=== PATIENT | female | born 1985 | race Caucasian/White ===

== ENCOUNTER → 2019-10-25 12:51 | Outpatient (BNVA) | payer BC, SELFPAY | PROVIDERS: Family Provider Family Medicine; PCP Nurse Practitioner Family; Visit Provider Anesthesiology | DX: G89.29 Other chronic pain (principal); M54.16 Radiculopathy, lumbar region; M46.1 Sacroiliitis, not elsewhere classified; M53.3 Sacrococcygeal disorders, not elsewhere classified; M79.651 Pain in right thigh; Z79.891 Long term (current) use of opiate analgesic | CPT/HCPCS: 99214 ==

== ENCOUNTER → 2019-12-27 14:30 | Outpatient (BNVA) | payer BC, SELFPAY | PROVIDERS: Family Provider Family Medicine; PCP Nurse Practitioner Family; Visit Provider Nurse Practitioner | DX: G89.29 Other chronic pain (principal); M54.16 Radiculopathy, lumbar region; M53.3 Sacrococcygeal disorders, not elsewhere classified; M46.1 Sacroiliitis, not elsewhere classified; M79.651 Pain in right thigh; Z79.891 Long term (current) use of opiate analgesic | CPT/HCPCS: 99214 ==

== ENCOUNTER → 2020-04-11 09:23 | Outpatient (BNVA) | payer BC, SELFPAY | PROVIDERS: Family Provider Family Medicine; PCP Nurse Practitioner Family; Visit Provider Anesthesiology | DX: G89.29 Other chronic pain (principal); M54.16 Radiculopathy, lumbar region; M53.3 Sacrococcygeal disorders, not elsewhere classified; M46.1 Sacroiliitis, not elsewhere classified; Z79.891 Long term (current) use of opiate analgesic | CPT/HCPCS: 99213; 99214 ==

== ENCOUNTER → 2020-06-15 09:27 | Outpatient (BNVA) | payer BC, SELFPAY | PROVIDERS: Family Provider Family Medicine; PCP Nurse Practitioner Family; Visit Provider Anesthesiology | DX: G89.29 Other chronic pain (principal); M54.16 Radiculopathy, lumbar region; M53.3 Sacrococcygeal disorders, not elsewhere classified; M25.551 Pain in right hip; M46.1 Sacroiliitis, not elsewhere classified; Z79.891 Long term (current) use of opiate analgesic | CPT/HCPCS: 99214 ==

== ENCOUNTER → 2020-08-21 08:52 | Outpatient (BNVA) | payer BC, SELFPAY | PROVIDERS: Family Provider Family Medicine; PCP Nurse Practitioner Family; Visit Provider Anesthesiology | DX: G89.29 Other chronic pain (principal); M25.551 Pain in right hip; M54.16 Radiculopathy, lumbar region; M53.3 Sacrococcygeal disorders, not elsewhere classified; M46.1 Sacroiliitis, not elsewhere classified; Z79.891 Long term (current) use of opiate analgesic | CPT/HCPCS: 99213; 99214 ==

== ENCOUNTER → 2020-10-23 10:40 | Outpatient (BNVA) | payer BC, SELFPAY | PROVIDERS: Family Provider Family Medicine; PCP Nurse Practitioner Family; Visit Provider Nurse Practitioner | DX: G89.29 Other chronic pain (principal); M25.551 Pain in right hip; M54.41 Lumbago with sciatica, right side; M54.16 Radiculopathy, lumbar region; M46.1 Sacroiliitis, not elsewhere classified; M53.3 Sacrococcygeal disorders, not elsewhere classified; Z79.891 Long term (current) use of opiate analgesic | CPT/HCPCS: 99213; 99214 ==

== ENCOUNTER → 2020-12-18 08:55 | Outpatient (BNVA) | payer BC, SELFPAY | PROVIDERS: Family Provider Family Medicine; PCP Nurse Practitioner Family; Visit Provider Anesthesiology | DX: G89.29 Other chronic pain (principal); M53.3 Sacrococcygeal disorders, not elsewhere classified; M54.16 Radiculopathy, lumbar region; M46.1 Sacroiliitis, not elsewhere classified; M25.561 Pain in right knee; M25.551 Pain in right hip; Z79.891 Long term (current) use of opiate analgesic | CPT/HCPCS: 99214 ==

== ENCOUNTER → 2021-02-22 14:06 | Outpatient (BNVA) | payer SELFPAY | PROVIDERS: Family Provider Family Medicine; PCP Nurse Practitioner Family; Visit Provider Anesthesiology | DX: G89.29 Other chronic pain (principal); M54.16 Radiculopathy, lumbar region; Z79.891 Long term (current) use of opiate analgesic | CPT/HCPCS: 99213 ==

== ENCOUNTER 2021-10-29 14:36 | Outpatient (CLI) | payer BC, SELFPAY ==
--- NOTE | 2021-10-29 14:56 | XR_ITS ---
WS: [id number] RIGHT HAND: 2 VIEW(S) TECHNIQUE: PA and lateral. HISTORY: R79.82 - Elevated C-reactive protein (CRP) COMPARISON: None available. No acute fracture or dislocation. No soft tissue or bone abnormality. XR/XR hand RT 2V [id number] IMPRESSION: Normal RIGHT hand.
--- NOTE | 2021-10-29 14:56 | XR_ITS ---
WS: [id number] LEFT HAND: 2 VIEW(S) TECHNIQUE: PA and lateral. HISTORY: R79.82 - Elevated C-reactive protein (CRP) COMPARISON: None available. No acute fracture or dislocation. No soft tissue or bone abnormality. XR/XR hand LT 2V [id number] IMPRESSION: Normal LEFT hand.
--- NOTE | 2021-10-29 14:56 | XR_ITS ---
WS: [id number] SACROILIAC JOINTS TECHNIQUE: AP and oblique imaging is submitted. HISTORY: L40.9 - Psoriasis, unspecified COMPARISON: None available. Very mild bilateral increased density along the mid to lower SI joints. Very slight irregularity invo lving the sacral side of the RIGHT SI joint. No bone fusion. No large erosions. No soft tissue abnormality. XR/XR sacroiliac jts m 3V [id number] IMPRESSION: Mild early changes of sacroiliitis bilaterally but greatest on the RIGHT. These changes can be seen with early changes of psoriasis.
[2021-10-29 16:04] LABS: Erythrocyte Sedimentation Rate 6 mm/hr (0-15)
[2021-10-29 16:27] LABS: C Reactive Protein 0.3 mg/L (0.0-4.9); Creatine Phosphokinase 93 U/L (26-192); Ferritin 37 ng/mL (15-150); Iron 60 ug/dL (37-145)
[2021-10-29 16:33] LABS: Hepatitis B Core AB, Total Non-Reactive (Nonreactive); Hepatitis B Surface Antigen Non-Reactive (Nonreactive); Hepatitis C Virus Antibody Non-Reactive (Nonreactive)
[2021-10-30 11:54] LABS: COMPLEMENT COMPONENT C3C 112 mg/dL (83-193); COMPLEMENT COMPONENT C4C 21 mg/dL (15-57)
[2021-10-30 13:04] LABS: COMPLEMENT, TOTAL (CH50) >60 U/mL (31-60)
[2021-10-30 14:07] LABS: Cyclic Citrullinated Peptide <16 UNITS
[2021-10-31 11:58] LABS: CENTROMERE B ANTIBODY <1.0 NEG AI (<1.0 NEG); JO-1 ANTIBODY <1.0 NEG AI (<1.0 NEG); RNP ANTIBODY <1.0 NEG AI (<1.0 NEG); SCL-70 ANTIBODY <1.0 NEG AI (<1.0 NEG); SJOGREN'S ANTIBODY (SS-A) <1.0 NEG AI (<1.0 NEG); SM ANTIBODY <1.0 NEG AI (<1.0 NEG); SS-B <1.0 NEG AI (<1.0 NEG)
[2021-10-31 14:32] LABS: THYROID PEROXIDASE ANTIBODIES <1 IU/mL (<9)
[2021-10-31 16:26] LABS: ANA SCREEN, IFA NEGATIVE (NEGATIVE)
[2021-11-05 12:28] LABS: DNA AB (DS) CRITHIDIA,IFA NEGATIVE (NEGATIVE)
== END 2021-10-29 14:37 | disposition home or self-care (01) ==
LOC: LAB 14:52 → RAD 14:54
PROVIDERS: PCP Nurse Practitioner Family; Visit Provider Internal Medicine
DX: R79.82 Elevated C-reactive protein (CRP) (principal); L40.9 Psoriasis, unspecified; Z11.59 Encounter for screening for other viral diseases; M46.1 Sacroiliitis, not elsewhere classified
CPT/HCPCS: 36415; 72202; 73120; 82533; 82550; 82728; 83516; 83540; 85651; 86140; 86160; 86162; 86200; 86235; 86255; 86376; 86704; 86803; 87340

== ENCOUNTER 2024-07-13 08:10 | Outpatient (CLI) | payer BC, SELFPAY ==
--- NOTE | 2024-07-13 08:14 | MM_ITS ---
WS: [id number] SCREENING DIGITAL BREAST TOMOSYNTHESIS MAMMOGRAM WITH CAD HISTORY: SCREENING COMPARISON: 06/16/2018 Bilateral CC and MLO with tomosynthesis and synthetic mammography submitted. Computer aided detection analyzed. Breast composition: The breasts are extremely dense, which lowers the sensitivity of mammography. Kaz ateral breast asymmetries are focal and new since the prior study. Asymmetry central to the RIGHT nip ple. There is additional asymmetry with architectural distortion in the central posterior LEFT breast . This is not definitely seen on the lateral projection. There are 2 additional smaller asymmetries n oted on the LEFT MLO which need additional evaluation also. MM/MM scr tomosynthesis [id number] IMPRESSION: BI-RADS: 0 - Incomplete: Need additional imaging evaluation FOLLOW UP: Need Additional Imaging RIGHT breast: Spot compression views (CC and MLO). True ML. Ultrasound to follo w if abnormality persists. LEFT breast: Spot compression views (CC and MLO). True ML. Ultrasound to follow if abnormality persists.
== END 2024-07-13 08:11 | disposition home or self-care (01) ==
LOC: RAD 08:10
PROVIDERS: PCP Nurse Practitioner Family; Visit Provider Nurse Practitioner Family
DX: Z12.31 Encounter for screening mammogram for malignant neoplasm of breast (principal)
CPT/HCPCS: 77063; 77067

== ENCOUNTER 2024-09-06 14:20 | Outpatient (CLI) | payer BC, SELFPAY ==
--- NOTE | 2024-09-06 14:27 | US_ITS ---
WS: [id number] DIAGNOSTIC BILATERAL DIGITAL BREAST TOMOSYNTHESIS MAMMOGRAPHY WITH CAD RIGHT breast ultrasound, limited HISTORY: R92.2 - Inconclusive mammogram COMPARISON: 07/13/2024, 06/16/2018 TECHNIQUE: Bilateral craniocaudad, mediolateral oblique, and mediolateral views are submitted with to mosynthesis and SM. Spot compression bilateral CC and MLO views. Computer aided detection utilized. Focal asymmetry retroareolar RIGHT breast just slightly towards 6:00 persists. Asymmetry becomes less apparent but ultrasound will be performed. The asymmetries in the LEFT breast resolves with spot com pression views. There are no persistent abnormalities in the LEFT breast. RIGHT breast ultrasound, limited. Very dense fibroglandular tissue in the retroareolar and subareolar region of the RIGHT breast. There is no mass or shadowing identified at 6:00. US/US breast RT limited* [id number] IMPRESSION: BI-RADS: 2- Benign FOLLOW UP: 1 Year Follow-up Breasts are extremely dense with asymmetries. No persistent mass or shadowing i dentified. Return to normal annual screening mammography.
--- NOTE | 2024-09-06 14:30 | MM_ITS ---
WS: [id number] DIAGNOSTIC BILATERAL DIGITAL BREAST TOMOSYNTHESIS MAMMOGRAPHY WITH CAD RIGHT breast ultrasound, limited HISTORY: R92.2 - Inconclusive mammogram COMPARISON: 07/13/2024, 06/16/2018 TECHNIQUE: Bilateral craniocaudad, mediolateral oblique, and mediolateral views are submitted with to mosynthesis and SM. Spot compression bilateral CC and MLO views. Computer aided detection utilized. Focal asymmetry retroareolar RIGHT breast just slightly towards 6:00 persists. Asymmetry becomes less apparent but ultrasound will be performed. The asymmetries in the LEFT breast resolves with spot com pression views. There are no persistent abnormalities in the LEFT breast. RIGHT breast ultrasound, limited. Very dense fibroglandular tissue in the retroareolar and subareolar region of the RIGHT breast. There is no mass or shadowing identified at 6:00. MM/MM diag BI tomosynthesis [id number] IMPRESSION: BI-RADS: 2- Benign FOLLOW UP: 1 Year Follow-up Breasts are extremely dense with asymmetries. No persistent mass or shadowing i dentified. Return to normal annual screening mammography.
== END 2024-09-06 14:21 | disposition home or self-care (01) ==
LOC: RAD 14:21
PROVIDERS: PCP Nurse Practitioner Family; Visit Provider Nurse Practitioner Women's Health
DX: R92.333 Mammographic heterogeneous density, bilateral breasts (principal); R92.2 Inconclusive mammogram
CPT/HCPCS: 76642; 77062; G0279

== ENCOUNTER 2024-10-20 14:17 | Observation (INO) | payer BC, SELFPAY ==
--- NOTE | 2024-10-19 08:32 | ANES.PREANE2 ---
Pre-Anesthetic Assessment Height/Weight: Height 5 ft 7 in Preop Diagnosis: abnormal uterine bleeding Operation Date: 10/20/24 12:00 Proposed Procedures p Total Vaginal Hysterectomy 82116, N93.9(Not Applicable) - Shravan Quezada MD Was Beta Lea taken within 24 hours: N/A Was Clonidine taken within 24 hours: N/A Social No alcohol and No tobacco Exam alert, oriented x 3, clear to auscultation bilaterally and regular rate & rhythm Airway Submandibular: within normal limits Cervical ROM: within normal limits Mallampati: Class I Dentition: full Anesthetic Plan ASA status: 1 Anesthesia: General Other: Patient presents to preop clinic today for scheduled hysterectomy tomorrow No prior issues with anesthesia Plan to be n.p.o. at midnight Denies any pulmonary cardiac issues Does not take any medications at baseline METs greater than 4 Plan for general anesthesia Medications/Allergies Allergies Allergy/AdvReac Type Severity Reaction Status Date / Time clindamycin Allergy Unknown ALGY-Rash Verified 10/13/24 15:24 amoxicillin AdvReac RASH/DIARRH Verified 10/13/24 15:24 EA PFS Anesthesia Medical History Encounter for long-term opiate analgesic use Chronic narcotic use Opioid contract exists Sacroiliitis Chronic left lumbar radiculopathy Chronic SI joint pain Chronic lumbosacral pain Surgical History H/O tubal ligation Family History Mother Dementia Hyperlipidemia Hypertension Grandfather Dementia Diabetes Stroke Heart attack Father Hyperlipidemia Hypertension Brother Hyperlipidemia Hypertension Sister Hyperlipidemia Hypertension Grandmother Heart attack Family/Other Rheumatoid arthritis Other CAD (coronary artery disease) Denies family history of Lupus Chronic kidney disease (CKD) Bleeding disorder Lung disease Cancer Social History Smoking and tobacco/nicotine status: never used tobacco/nicotine Quit status (tobacco/nicotine): has quit using Year quit tobacco: 10 years ago Second hand smoke exposure: No Alcohol intake: current Alcohol intake frequency: holidays/special occasions only Substance/Drug Use: never Female Reproductive History Date of last menstrual period: 10/19/24 Data Anesthesia Cardiac Studies: No Data to Display
[2024-10-20] VITALS (14 sets, daily range): BP systolic 90–119; BP diastolic 53–71; PULSE 48–83; RESP 14–18; TEMP 36.4–36.9; O2SAT 99–100; BMI 18.8
--- NOTE | 2024-10-20 11:06 | P.ANESASSM_ITS ---
Pre-Anesthetic Assessment Height/Weight: Height 5 ft 7 in Weight 120 lb Temp Pulse Resp BP Pulse Ox O2 Del Method 98.5 F 72 14 119/68 99 Room Air 10/20/24 10:43 10/20/24 10:43 10/20/24 10:43 10/20/24 10:43 10/20/24 10:43 10/20/24 11:04 Preop Diagnosis: abnormal uterine bleeding Operation Date: 10/20/24 12:00 Proposed Procedures p Total Vaginal Hysterectomy 90808, N93.9(Not Applicable) - Shravan Quezada MD Was Beta Lea taken within 24 hours: N/A Was Clonidine taken within 24 hours: N/A Last intake: Intake Last Liquid Date 10/19/24 Last Liquid Time 20:30 Last Solid Date 10/19/24 Last Solid Time 19:00 Social No alcohol and No tobacco Exam alert, oriented x 3, clear to auscultation bilaterally and regular rate & rhythm Airway Submandibular: within normal limits Cervical ROM: within normal limits Mallampati: Class I Dentition: full Anesthetic Plan ASA status: 1 Anesthesia: General Other: No prior issues with anesthesia NPO since yesterday Denies any pulmonary or cardiac issues Does not take any home medications METs greater than 4 Plan for GETA Medications/Allergies Allergies Allergy/AdvReac Type Severity Reaction Status Date / Time clindamycin Allergy Unknown ALGY-Rash Verified 10/13/24 15:24 amoxicillin AdvReac RASH/DIARRH Verified 10/13/24 15:24 EA [facility] Anesthesia Medical History Encounter for long-term opiate analgesic use Chronic narcotic use Opioid contract exists Sacroiliitis Chronic left lumbar radiculopathy Chronic SI joint pain Chronic lumbosacral pain Surgical History H/O tubal ligation Family History Mother Dementia Hyperlipidemia Hypertension Grandfather Dementia Diabetes Stroke Heart attack Father Hyperlipidemia Hypertension Brother Hyperlipidemia Hypertension Sister Hyperlipidemia Hypertension Grandmother Heart attack Family/Other Rheumatoid arthritis Other CAD (coronary artery disease) Denies family history of Lupus Chronic kidney disease (CKD) Bleeding disorder Lung disease Cancer Social History Smoking and tobacco/nicotine status: never used tobacco/nicotine Quit status (tobacco/nicotine): has quit using Year quit tobacco: 10 years ago Second hand smoke exposure: No Alcohol intake: current Alcohol intake frequency: holidays/special occasions only Substance/Drug Use: never Female Reproductive History Date of last menstrual period: 10/19/24 Data Anesthesia Cardiac Studies: No Data to Display
[2024-10-20] MEDS: sodium chloride 0.9% 1,000 ML 30 ML IV (11:45)
[2024-10-20 11:47] LABS: OR HCG Qualitative Urine Negative (Negative)
[2024-10-20 12:06] LABS: Basophils % 0.7 %; Eosinophils # 0.2 10^3/uL (0.0-0.8); Eosinophils % 2.6 %; Hematocrit 45.3 % (36-47); Lymphocytes # 1.7 10^3/uL (0.8-4.8); Lymphocytes % 28.2 %; Mean Corpuscular HGB Conc 33.8 g/dL (30-55); Mean Corpuscular Hemoglobin 31.8 pg (27-33); Mean Corpuscular Volume 94.2 fl (85-98); Mean Platelet Volume 9.4 fL (7.4-10.4); Monocytes # 0.3 10^3/uL (0.2-0.9); Monocytes % 5.5 %; Neutrophils # 3.85 10^3/uL (1.8-7.7); Neutrophils % 62.7 %; Nucleated Red Blood Cells % 0 %; Platelet Count 459 10^3/cmm (157-399); Red Blood Count 4.81 10^6/uL (3.85-5.65); Red Cell Distribution Width 13.2 % (12.1-15.1); White Blood Count 6.14 10^3/uL (3.29-11.43)
[2024-10-20] MEDS: VANCOMYCIN ADD-Vantage 1,000 MG in 0.9% NaCl ADD-Vantage 250 ML 250 MG IV (12:10)
[2024-10-20 12:25] LABS: Bilirubin Urine Negative (Negative); Blood Urine Negative (Negative); Glucose Urine UA Negative (Normal); Ketones Urine Negative (Negative); Leukocyte Esterase Urine Negative (Negative); Nitrate Urine Negative (Negative); Protein Urine Negative (Negative); Specific Gravity, Urine 1.019 (1.005-1.030); Urine Appearance Clear (CLEAR); Urobilinogen Urine 0.2 mg/dL (Negative)
[2024-10-20 12:30] LABS: Add Urine Microscopic? YES; Bacteria Urine None Seen /hpf; Hyaline Casts Urine 0-4 /lpf; RBC Urine 0-2 /hpf (0-2); Squamous Epithelial Cell Urine 0-5 /hpf (0-5); WBC Urine 0-5 /hpf (0-5)
--- NOTE | 2024-10-20 12:30 | W.PM.OPSUD ---
Surgery/Procedure H&P Update DATE OF PROCEDURE: October 20, 2024 DATE H&P PERFORMED: 10/13/24 H&P UPDATE INFORMATION: I have reviewed H&P completed within last 30 days, I have examined patient prior to procedure and No changes to prior documentation PREOP DIAGNOSIS: Abnormal uterine bleeding, adenomyosis PLANNED PROCEDURE: Operation Date: 10/20/24 12:00 Proposed Procedures p Total Vaginal Hysterectomy 13540, N93.9(Not Applicable) - Shravan Quezada MD
[2024-10-20] MEDS: scopolamine 1 mg PATCH 1 PATCH TRANSDERMA (12:31)
[2024-10-20] MEDS: ondansetron 2 mg/ML SDV 2 mL 4 MG IVP (12:32)
[2024-10-20] MEDS: midazolam 1 mg/mL INJ 2 mL 2 MG IVP (12:38)
[2024-10-20 12:40] LABS: Alanine Aminotransferase 13 U/L (0-33); Albumin Level 4.7 g/dL (3.5-5.2); Alkaline Phosphatase 66 U/L (35-105); Anion Gap 17.9 (5-19); Aspartate Amino Transferase 17 U/L (0-32); Blood Urea Nitrogen 10 mg/dL (6-20); Calcium 9.4 mg/dL (8.5-10.5); Carbon Dioxide 21 mmol/L (22-29); Chloride 101 mmol/L (98-107); Creatinine Clr Calc Pharmacy 114.4058; Globulin 2.8 g/dL (1.3-4.6); Glomerular Filtration Rate 110.2 mL/min (90-130); Glucose 77 mg/dL (65-115); Osmolality Calculated 280 mOsm/kg (285-295); Potassium 3.9 mmol/L (3.5-5.1); Sodium 136 mmol/L (136-145); Total Bilirubin 0.8 mg/dL (0.15-1.2); Total Protein 7.5 g/dL (6.6-8.7)
[2024-10-20 12:48] LABS: Urine Color Orange (Yellow)
[2024-10-20] MEDS: levofloxacin-dextrose 5 % 500 MG/100 ML PREMIX 100 MG IV (13:28)
[2024-10-20] MEDS: lidocaine-epi 2% PF 1:200,000 20 mL SDV INJECTION (13:31)
--- NOTE | 2024-10-20 14:20 | P.OP_ITS ---
Operative Report Date of procedure: October 20, 2024 Pre-op diagnosis: Abnormal uterine bleeding Adenomyosis Post-op findings: Enlarged uterus Procedure done: Total vaginal hysterectomy Specimens removed/disposition: Uterus Surgeon: Shravan Quezada MD Estimated blood loss (mL): 100 IV fluids (mL): 1,100 Urine output (mL): 150 Complications: Bleeding Procedure: After informed consent and risks, benefits, indications and alternatives reviewed with the patient was taken to the operating room. The patient was placed in dorsal lithotomy position prepped, and draped in the usual sterile fashion. The pre-procedure timeout verifying the correct patient, procedure, site and side, could not requirements was performed and acknowledge by the OR team. A Seo catheter was placed. A Bookwalter vaginal retractor was placed into the vagina in usual manner visualize the cervix. Cervix was grasped with a single tooth tenaculum and circumferentially infiltrated with 2% lidocaine with epinephrine. Then cervix was circumferentially incised with bovie and the bladder was dissected off the pubovesical cervical fascia anteriorly with a sponge stick and Metzenbaum scissors. The anterior peritoneal reflection was identified and the anterior cul-de-sac was entered sharply with Metzenbaum scissors. The same procedure was performed posteriorly and a posterior colpotomy was made through the posterior cul-de-sac space without difficulty and the posterior blade of the Bookwalter vaginal retractor was advanced posteriorly into the cul-de-sac. At this time, the left and right uterosacral ligaments were isolated and ligated with 0 Vicryl. The LigaSure device was placed over the uterosacral ligaments on either side and was then used in a serial fashion up through the cardinal ligaments bilaterally cross-clamped, cut, and sealed with the LigaSure device. Finally, the uterine arteries were cross-clamped, cut, sealed and ligated with the LigaSure device. Hemostasis was assured. The broad ligaments were then serially clamped, sealed and cut with the LigaSure device on both sides. Excellent hemostasis was visua lized. Both cornua were clamped, sealed and cut with the LigaSure device. Then the pedicles were then suture ligated with excellent hemostasis. The uterus was excised and submitted for pathologic evaluation. No other abnormalities were noted in the pelvic cavity. The peritoneum was then closed in a pursestring fashion with 0 Vicryl suture. The vaginal cuff angles were closed with [id number] #0 Vicryl suture on both sides and transfixed with the ipsilateral cardinal and uterosacral ligaments. The remainder of the vaginal cuff was closed with #0 Vicryl in a running locked fashion. Bludigo was given IV At this time, instruments were removed from the vagina at hemostasis assured. Then the Seo catheter was then placed yielding clear blue urine. The patient was taken out of dorsal lithotomy position and awakened from the general anesthesia. The patient tolerated the procedure well and was taken to the PACU recovery room in a stable condition. Sponge, lap, needle and instruments counts were correct x3.
--- NOTE | 2024-10-20 14:25 | W.PM.BPON ---
Date of Procedure: 10/20/24 Surgeon: Shravan Quezada MD Radiocommunications Technician(s): Procedure(s) performed: Total vaginal hysterectomy Findings of the procedure(s): Enlarged uterus Estimated blood loss: 100 mL Specimen(s) removed: Uterus Post-operative diagnosis: Status post total vaginal
[2024-10-20] MEDS: HYDROmorphone 1 mg/mL INJ 1 mL 0.5 MG IVP (14:30)
--- NOTE | 2024-10-20 14:59 | ANE.PACU2 ---
Inpatient post-anesthesia follow up: Airway intact: Yes Vital signs: Temperature 98.4 F Pulse Rate 68 Respiratory Rate 14 Blood Pressure 122/75 Pulse Oximetry 98 Oxygen Delivery Me thod Room Air Oxygen Flow Rate Fraction of Inspir ed Oxygen Hydration adequate: Yes Nausea and vomiting: No Pain level: 1 Mental status: Baseline
[2024-10-20] MEDS: ketorolac 30 mg/mL INJ IVP ×2 (16:05→22:19)
[2024-10-20] MEDS: docusate sodium 100 mg Capsule PO (19:18)
[2024-10-20] MEDS: HYDROcodone-acetaminophen 5-325 mg Tablet PO (19:18)
[2024-10-21] MEDS: ketorolac 30 mg/mL INJ IVP ×2 (05:09→09:53)
[2024-10-21 05:11] VITALS: BP 104/67; PULSE 53; RESP 16; O2SAT 100
[2024-10-21 05:30] LABS: Hematocrit 37.7 % (36-47); Mean Corpuscular HGB Conc 32.9 g/dL (30-55); Mean Corpuscular Hemoglobin 32.4 pg (27-33); Mean Corpuscular Volume 98.4 fl (85-98); Mean Platelet Volume 8.6 fL (7.4-10.4); Platelet Count 375 10^3/cmm (157-399); Red Blood Count 3.83 10^6/uL (3.85-5.65); Red Cell Distribution Width 13.4 % (12.1-15.1); White Blood Count 14.05 10^3/uL (3.29-11.43)
[2024-10-21 08:49] VITALS: BP 128/77; PULSE 69; RESP 14; O2SAT 99
[2024-10-21] MEDS: docusate sodium 100 mg Capsule PO (08:51)
--- NOTE | 2024-10-21 12:37 | P.DS_ITS ---
Discharge Providers PERITONEAL DIALYSIS REGISTERED NURSE Date of Admission: 10/20/24 14:17 Date of Discharge: 10/21/24 Attending Provider at Admission: Shravan Quezada MD Attending Provider at Discharge: Shravan Quezada MD Primary Care Provider: MARY Shabazz Reason for Visit Reason for Visit: N93.9 Hospital Course Hospital Course Mrs. Cartagena 39-year-old female with a history of abnormal uterine bleeding unresponsive to medical management admitted for planned total vaginal hysterectomy. The procedure was performed without complication. She is afebrile and hemodynamically stable postoperative day 1. Tolerating diet well. Ambulating without difficulty. She was counseled regarding pelvic rest for 6 weeks (no sex, no tampons, no vaginal douches). Return to the emergency room if any fever, increased bleeding or pain. Physical Exam Narrative: GA: Alert and oriented ?3. HEENT: WNL. Heart: Regular rate and rhythm. Lungs: Clear to auscultation bilaterally. Abdomen: Bowel sounds present, nontender. MINGLE OPERATOR: spotting bleeding. Extremities: No edema, no cyanosis, no calves pain. Urinary Catheter Management: Seo: Cath Placed During This Visit: yes, but has since been removed by the nurse Reason for Continuing Indwelling Catheter: Decision to DC Catheter Urinary Catheter Date of Insertion: 10/20/24 Urinary Catheter Time of Insertion: 13:10 Date Urinary Catheter Removed: 10/21/24 Time Urinary Catheter Discontinued: 05:15 History History History 3 Term 3 0 Miscarriages/Ectopic 0 Living Children 3 Discharge Data Studies Completed and Pending Pending at discharge Category Date Time Status Pathology: Surgical [PTH] Routine Pth 10/20/24 13:54 Received Laboratory Results WBC 14.05 10^3/uL (3.29-11.43) H 10/21/24 05:15 RBC 3.83 10^6/uL (3.85-5.65) L 10/21/24 05:15 Hgb 12.40 g/dL (11.27-16.99) 10/21/24 05:15 Hct 37.7 % (36-47) 10/21/24 05:15 MCV 98.4 fl (85-98) H 10/21/24 05:15 MCH 32.4 pg (27-33) 10/21/24 05:15 MCHC 32.9 g/dL (30-55) 10/21/24 05:15 RDW 13.4 % (12.1-15.1) 10/21/24 05:15 Plt Count 375 10^3/cmm (157-399) 10/21/24 05:15 MPV 8.6 fL (7.4-10.4) 10/21/24 05:15 Neut % (Auto) 62.7 % 10/20/24 11:15 Lymph % (Auto) 28.2 % 10/20/24 11:15 [place] % (Auto) 5.5 % 10/20/24 11:15 Eos % (Auto) 2.6 % 10/20/24 11:15 Baso % (Auto) 0.7 % 10/20/24 11:15 Neut # (Auto) 3.85 10^3/uL (1.8-7.7) 10/20/24 11:15 Lymph # (Auto) 1.7 10^3/uL (0.8-4.8) 10/20/24 11:15 [place] # (Auto) 0.3 10^3/uL (0.2-0.9) 10/20/24 11:15 Eos # (Auto) 0.2 10^3/uL (0.0-0.8) 10/20/24 11:15 Baso # (Auto) 0.0 10^3/uL (0.0-0.1) 10/20/24 11:15 Nucleated RBC % (auto) 0 % 10/20/24 11:15 Nucleated RBCs # 0.0 /100WBC 10/20/24 11:15 Sodium 136 mmol/L (136-145) 10/20/24 11:15 Sodium Cancelled 10/20/24 11:15 Potassium 3.9 mmol/L (3.5-5.1) 10/20/24 11:15 Potassium Cancelled 10/20/24 11:15 Chloride 101 mmol/L (98-107) 10/20/24 11:15 Chloride Cancelled 10/20/24 11:15 Carbon Dioxide 21 mmol/L (22-29) L 10/20/24 11:15 Carbon Dioxide Cancelled 10/20/24 11:15 Anion Gap 17.9 (5-19) 10/20/24 11:15 Anion Gap Cancelled 10/20/24 11:15 BUN 10 mg/dL (6-20) 10/20/24 11:15 BUN Cancelled 10/20/24 11:15 Creatinine 0.6 mg/dL (0.5-0.9) 10/20/24 11:15 Creatinine Cancelled 10/20/24 11:15 GFR Calculation 110.2 mL/min (90-130) 10/20/24 11:15 GFR Calculation Cancelled 10/20/24 11:15 Glucose 77 mg/dL (65-115) 10/20/24 11:15 Glucose Cancelled 10/20/24 11:15 Calculated Osmolality 280 mOsm/kg (285-295) L 10/20/24 11:15 Calculated Osmolality Cancelled 10/20/24 11:15 Calcium 9.4 mg/dL (8.5-10.5) 10/20/24 11:15 Calcium Cancelled 10/20/24 11:15 Total Bilirubin 0.8 mg/dL (0.15-1.2) 10/20/24 11:15 AST 17 U/L (0-32) 10/20/24 11:15 ALT 13 U/L (0-33) 10/20/24 11:15 Alkaline Phosphatase 66 U/L (35-105) 10/20/24 11:15 Total Protein 7.5 g/dL (6.6-8.7) 10/20/24 11:15 Albumin 4.7 g/dL (3.5-5.2) 10/20/24 11:15 Globulin 2.8 g/dL (1.3-4.6) 10/20/24 11:15 Urine Color [place] (Yellow) A 10/20/24 10:35 Urine Appearance Clear (CLEAR) 10/20/24 10:35 Urine pH 6.0 (5-7) 10/20/24 10:35 Ur Specific [place] 1.019 (1.005-1.030) 10/20/24 10:35 Urine Protein Negative (Negative) 10/20/24 10:35 Urine Glucose (UA) Negative (Normal) 10/20/24 10:35 Urine Ketones Negative (Negative) 10/20/24 10:35 Urine Blood Negative (Negative) 10/20/24 10:35 Urine Nitrate Negative (Negative) 10/20/24 10:35 Urine Bilirubin Negative (Negative) 10/20/24 10:35 Urine Urobilinogen 0.2 mg/dL (Negative) 10/20/24 10:35 Ur Leukocyte Esterase Negative (Negative) 10/20/24 10:35 Urine RBC 0-2 /hpf (0-2) 10/20/24 10:35 Urine WBC 0-5 /hpf (0-5) 10/20/24 10:35 Ur Squamous Epith Cells 0-5 /hpf (0-5) 10/20/24 10:35 Amorphous Sediment Not Reportable 10/20/24 10:35 Urine Bacteria None seen /hpf (NONE) 10/20/24 10:35 Hyaline Casts 0-4 /lpf H 10/20/24 10:35 Urine HCG, Qual Negative (Negative) 10/20/24 10:35 Blood Type O Positive 10/20/24 11:15 Rho(D) Type Rh positive 10/20/24 11:15 Antibody Screen Negative 10/20/24 11:15 Vitals Last Vital Signs Temp 98.1 F 10/20/24 23:00 Pulse 69 10/21/24 08:49 Resp 14 10/21/24 08:49 BP 128/77 10/21/24 08:49 Pulse Ox 99 10/21/24 08:49 O2 Del Method Room Air 10/21/24 08:49 Results Labs OB ([facility]): Blood Type O Positive 10/20/24 Antibody Screen Negative 10/20/24 Hct 37.7 % (36-47) 10/21/24 Hgb 12.40 g/dL (11.27-16.99) 10/21/24 Rho(D) Type Rh positive 10/20/24 Plt Count 375 10^3/cmm (157-399) 10/21/24 Discharge Plan Discharge Patient Disposition: Home Condition: Stable Prescriptions: New hydrocodone-acetaminophen 5-325 mg tablet 1 tab PO Q4H PRN (Reason: pain) Qty: 20 0RF acetaminophen 325 mg capsule 325 mg PO Q4H PRN (Reason: fever or pain) Qty: 60 0RF ibuprofen 800 mg tablet 800 mg PO TID PRN (Reason: pain) Qty: 60 0RF Discharge Orders: Discharge Order (Routine); Ordered 10/21/24 Ordered By: Shravan Quezada Referrals: Shravan Quezada MD [Physician] - 12/01/24 2:45 pm Tata Howell APN, SANDRA [Nurse Practitioner] - 11/03/24 11:30 am Discharge Diet: Soft Mechanical Discharge Activity: Limit activity as instructed Patient Instructions: Acute Wound Care (DC), Opioid Safety (DC), Vaginal Hysterectomy (DC), OB Discharge Report, OB Food/Drug Interaction Guide, Opioid Safety, Post Anesthesia Care Activity Restrictions/Additional Instructions: 1. Please call [facility] [place] [facility] on next working day to make your post-operative appointment in 2 weeks. 2. Please stay home until you come back to the clinic on first post- hospatilization check up. 3. Please follow instructions on your medications CAREFULLY. 4. If you have abdominal incision, do not cover it unless dressing is necessary because of drainage. OK to shower, but avoid bath. Leave steri-strips until they fall off. If they are still on one week after surgery, you may remove them. 5. If you had vaginal surgery or vaginal repair, Dr. Quezada may instruct you to take SITZ bath. 6. Yellow, blood tinged odorous vaginal discharge is usually normal after hysterectomy or vaginal surgeries. 7. No SEXUAL INTERCOURSE, tampons, or douches until you are completely released from the post-operative care. 8. Avoid constipation by eating right and maybe using some Metamucil or Milk of Magnesia. 9. All prescription refills are given during the working hours. Please do no wait till it runs out. Call the clinic at [phone] before your medication runs out. The clinic will get in touch with your doctor to prescribe medications if necessary. 10. Please remain within 40 mile radius from our hospital because emergencies do happen now and then during the post-operative period. 11. If you have stairs at home, take one step at a time slowly and minimize the number of trips. It helps to stay in one floor for the next few days. No lifting except what you can lift by one hand until you are released from the post-operative care. 12. Driving is discouraged until you are well healed. It may be 3-4 weeks before you feel strong enough to drive. You should be able to turn and look through the rear window without pain and you should be able to push the brake pedal very hard without pain before you drive. No fast rules, but SAFETY should be your primary concern. DO NOT drive if you are on sedating medications such as narcotics. 13. Call the clinic (during working hours) to make urgent appointment or go to the Emergency room, if any of the following occurs: i. Vaginal bleeding becomes heavy, more than a period. ii. Incision becomes red and sore, or drains pus. iii. Your TEMPERATURE is over 100.4F or you have chill. iv. IV site becomes red and swollen (a little ``knot?? is usually OK) v. Persistent nausea and vomiting vi. Persistent constipation or diarrhea vii. Rash or allergic reaction to medications. Discharge Attestations PERITONEAL DIALYSIS REGISTERED NURSE Time Spent in Discharge Care*: greater than 30 min Coding Level of Care Code Acute Code for Chg Fwd
[2024-10-21 12:55] VITALS: BP 122/75; PULSE 68; RESP 14; TEMP 36.9; O2SAT 98
== END 2024-10-21 12:55 | disposition home or self-care (01) ==
LOC: OBGYN 14:18
PROVIDERS: Student in an Organized Health Care Education/Training Program; Admitting Provider Obstetrics & Gynecology; PCP Nurse Practitioner Family; Visit Provider Obstetrics & Gynecology
PROC: (CPT 58260; principal; 2024-10-20 12:00)
DX: N93.9 Abnormal uterine and vaginal bleeding, unspecified (principal); N72 Inflammatory disease of cervix uteri; Z87.891 Personal history of nicotine dependence
CPT/HCPCS: 58260; 36415; 80053; 81001; 81025; 85025; 85027; 86850; 86900; 88307; 96374; 96376; A4216; G0378; J1100; J1171; J1885; J1956; J2250; J2405; J2704; J3010; J3370; J3490; J7030; J7050